=== PATIENT | female | born 1995 | race Caucasian/White ===

== ENCOUNTER 2018-05-17 23:04 | Emergency (ER) | payer MEDICAID, OTHER ==
[2018-05-17 23:11] VITALS: BP 118/66
--- NOTE | 2018-05-17 23:26 | EDPHY ---
H & P Time Seen by Provider: 05/17/18 23:16 HPI/ROS: Chief complaint: Bump on abdomen History of present illness: 22-year-old female presents to the emergency department for evaluation of a bump she has noticed on the right upper abdomen. She states she knows the bump day ago. She can't primarily see a when she is standing. There is no associated discomfort with including no abdominal pain, no chest pain, no nausea, vomiting or diarrhea, no fever. She denies precipitating factors including trauma. Smoking Status: Never smoked Physical Exam: General Appearance: Alert and no distress. Eyes: Pupils equal and round no injection. Respiratory: Chest is non tender, lungs are clear to auscultation. Cardiac: regular rate and rhythm Gastrointestinal: Abdomen is soft and non tender, no masses, bowel sounds normal. No hernias are appreciated. Musculoskeletal: Neck is supple and non tender. Extremities have full range of motion and are non tender. Skin: No rashes or lesions. Constitutional: Initial Vital Signs Temperature (C) 36.8 C 05/17/18 23:08 Heart Rate 89 05/17/18 23:08 Respiratory Rate 20 05/17/18 23:08 Blood Pressure 118/66 05/17/18 23:08 O2 Sat (%) 99 05/17/18 23:08 O2 Delivery Mode Room Air Allergies/Adverse Reactions: No Known Allergies Allergy (Verified 05/17/18 23:07) Home Medications: Medication Instructions Recorded NK [No Known Home Meds] 05/17/18 MDM/Departure - MDM ED Course/Re-evaluation: Patient seen under the supervision of my secondary supervising physician Dr. Joaquín Collier. Patient presents concerned she has a bump on her abdomen. She has an unremarkable physical exam of her abdomen and chest. When she shows me the bump she is showing me the right lower costal margin. When I press on her lower right anterior ribs this is where she feels the bump. There are no associated hernias, no abdominal tenderness under the ribs. She does appear to be pointing to the ribs. I discussed normal anatomy. Home care is discussed. She is provided referral to a primary care doctor. Return precautions are given. - Depart Disposition: Home, Routine, Self-Care Clinical Impression: Abdominal wall bulge Condition: Good Instructions: Normal Exam (ED) Additional Instructions: Follow up with a primary care doctor for continued evaluation and care If symptoms worsen or new symptoms develop return to the emergency room for recheck Referrals: NONE *PRIMARY CARE P,. [Primary Care Provider] - As per Instructions [facility],. [Clinic] - As per Instructions
== END 2018-05-17 23:32 | disposition home or self-care (01) ==
DX: R19.00 Intra-abdominal and pelvic swelling, mass and lump, unspecified site (principal)

== ENCOUNTER 2018-06-11 19:24 | Emergency (ER) | payer OTHER ==
--- NOTE | 2018-06-11 19:51 | EDPHY ---
General Time Seen by Provider: 06/11/18 19:43 Narrative: CHIEF COMPLAINT: I think I am having a miscarriage HISTORY OF PRESENT ILLNESS: Patient presents by private vehicle with her mother stepfather with reports of I think I am having a miscarriage. She reports vaginal bleeding and . Last menstrual April 29. She has been bleeding 2 days. She reports light bleeding at 1st. It is not heavier. She has used approximately 5 pads today. She has no chest pain, shortness of breath, lightheadedness or syncope. She has no previous pregnancies. She reports that this is an unwanted . She has lower abdominal pelvic pain and cramping but no upper abdominal pain. No worsening factors. No alleviating factors. No other associated complaints or modifying factors. REVIEW OF SYSTEMS: 10 systems were reviewed and negative with the exception of the elements mentioned in the history of present illness. PCP: None SPECIALISTS: None PAST MEDICAL HISTORY: Denies PAST SURGICAL HISTORY: Denies SOCIAL HISTORY: No tobacco or alcohol use. Works at a [employer]. Lives with her family. FAMILY HISTORY: Noncontributory EXAMINATION: Vitals: Triage VS reviewed General Appearance: Alert, no distress. Well appearing. Head: normocephalic, atraumatic Eyes: Pupils equal and round, no conjunctival pallor or injection ENT, Mouth: Mucous membranes moist Respiratory: Lungs are clear to auscultation Cardiovascular: Regular rate and rhythm no murmur Gastrointestinal: Abdomen is soft and nondistended. No tympany rigidity. No guarding. Bowel sounds present all 4 quadrants. There is mild suprapubic tenderness. No palpable mass. : Deferred by patient Back: non-tender, no bony abnormalities Neurological: A&O, nonfocal, normal gait Skin: Warm and dry, no rash Extremities: Nontender, no pedal edema Psychiatric: Mood and affect normal DIFFERENTIAL DIAGNOSES: Including but not limited to threatened miscarriage, incomplete miscarriage, inevitable miscarriage, vaginal bleeding , subchorionic hemorrhage MDM: 7:50 p.m. Vaginal bleeding with reported approximately 6 weeks gestation. with ongoing pelvic pain and cramping. I have ordered ultrasound to rule out ectopic. Vital signs are within normal limits. No evidence of significant hemorrhage. Laboratory studies will be obtained. She is in no acute distress. This is reportedly an unwanted , but we will need to blood ectopic. 8:10 p.m. Urine point of care is negative. Serum qualitative HCG is pending. 9:00 p.m. Notified by radiologist Dr. Rizo. We discussed the findings of the ultrasound as documented suggesting incomplete miscarriage. Ultrasound has ruled out ectopic . There are minimal products of conception suspected in the uterus. She is A positive and her vital signs are within normal limits. We discussed discharge home with follow-up with Ob physician until her HCG reaches 0 and her ultrasound is normal. We discussed that she must see the Ob physician for definitive outpatient care. We discussed ED precautions for any heavy bleeding greater than 1 pad per hour, fever, worsening pain. Patient is comfortable this plan. She is well-appearing and discharged home stable condition. SUPERVISION: This patient was independently evaluated without direct involvement of or examination by the attending physician. CONSULTATION: None. OB referral. - Diagnostics Imaging Results: Imaging Impressions Obstetrics Ultrasound 06/11/18 19:57 Impression: No evidence for an intrauterine . Recommend following beta hCG to exclude ectopic . No ultrasound findings to suggest ectopic . There is mild free fluid in the cul-de-sac. Mildly thickened endometrium at the lower uterine segment, without vascularity, which is nonspecific and could be hemorrhage or less likely retained products of conception. Results called and discussed with Roman Bee PA-C, on June 11, 2018 at 2102. - History Smoking Status: Never smoked - Objective Vital Signs: Initial Vital Signs Temperature (C) 99.1 F 06/11/18 19:36 Heart Rate 83 06/11/18 19:36 Respiratory Rate 20 06/11/18 19:36 Blood Pressure 146/74 H 06/11/18 19:36 O2 Sat (%) 96 06/11/18 19:36 O2 Delivery Mode Room Air Allergies/Adverse Reactions: No Known Allergies Allergy (Verified 06/11/18 19:35) Home Medications: Medication Instructions Recorded NK [No Known Home Meds] 05/17/18 Laboratory Results: Laboratory Results 06/11/18 19:56 06/11/18 19:56 06/11/18 06/11/18 06/11/18 19:59 19:59 19:56 WBC RBC Hgb Hct MCV MCH MCHC RDW Plt Count MPV Neut % (Auto) Lymph % (Auto) [place] % (Auto) Eos % (Auto) Baso % (Auto) Nucleat RBC Rel Count Absolute Neuts (auto) Absolute Lymphs (auto) Absolute Monos (auto) Absolute Eos (auto) Absolute Basos (auto) Absolute Nucleated RBC Immature Gran % Immature Gran # Sodium 136 mEq/L mEq/L (135-145) Potassium 3.7 mEq/L mEq/L (3.5-5.2) Chloride 107 mEq/L mEq/L (97-110) Carbon Dioxide 20 mEq/l L mEq/l (22-31) Anion Gap 9 mEq/L mEq/L (6-14) BUN 5 mg/dL L mg/dL (7-23) Creatinine 0.7 mg/dL mg/dL (0.6-1.0) Estimated GFR > 60 Glucose 88 mg/dL mg/dL (70-100) Calcium 9.1 mg/dL mg/dL (8.5-10.4) Beta HCG, Qual POSITIVE Beta HCG, Quant 43.83 mIU/mL H mIU/mL (0.00-4.83) Patient ABO/Rh A POSITIVE 06/11/18 19:56 WBC 9.87 10^3/uL H 10^3/uL (3.80-9.50) RBC 4.32 10^6/uL 10^6/uL (4.18-5.33) Hgb 14.3 g/dL g/dL (12.6-16.3) Hct 42.5 % % (38.0-47.0) MCV 98.4 fL fL (81.5-99.8) MCH 33.1 pg pg (27.9-34.1) MCHC 33.6 g/dL g/dL (32.4-36.7) RDW 12.1 % % (11.5-15.2) Plt Count 279 10^3/uL 10^3/uL (150-400) MPV 9.7 fL fL (8.7-11.7) Neut % (Auto) 71.6 % % (39.3-74.2) Lymph % (Auto) 17.5 % % (15.0-45.0) [place] % (Auto) 8.6 % % (4.5-13.0) Eos % (Auto) 1.6 % % (0.6-7.6) Baso % (Auto) 0.4 % % (0.3-1.7) Nucleat RBC Rel Count 0.0 % % (0.0-0.2) Absolute Neuts (auto) 7.06 10^3/uL H 10^3/uL (1.70-6.50) Absolute Lymphs (auto) 1.73 10^3/uL 10^3/uL (1.00-3.00) Absolute Monos (auto) 0.85 10^3/uL H 10^3/uL (0.30-0.80) Absolute Eos (auto) 0.16 10^3/uL 10^3/uL (0.03-0.40) Absolute Basos (auto) 0.04 10^3/uL 10^3/uL (0.02-0.10) Absolute Nucleated RBC 0.00 10^3/uL 10^3/uL (0-0.01) Immature Gran % 0.3 % % (0.0-1.1) Immature Gran # 0.03 10^3/uL 10^3/uL (0.00-0.10) Sodium Potassium Chloride Carbon Dioxide Anion Gap BUN Creatinine Estimated GFR Glucose Calcium Beta HCG, Qual Beta HCG, Quant Patient ABO/Rh Point of Care Test Results: Urine Collection Date 06/11/18 Collection Time 20:03 HCG Results Negative Departure - Departure Disposition: Home, Routine, Self-Care Clinical Impression: Incomplete miscarriage Condition: Good Instructions: Miscarriage (ED) Additional Instructions: 1. Contact Ob physician for definitive care. You need to be seen within 1 week. 2. Return here for any bleeding greater than 1 pad per hour, worsening pain, fever Referrals: Bria White DO [Doctor of Osteopathy] - As per Instructions Stand Alone Forms: Work Excuse
[2018-06-11 20:28] LABS: PLATELET COUNT 279 10^3/uL (150-400)
[2018-06-11 21:18] VITALS: BP 124/67
== END 2018-06-11 21:30 | disposition home or self-care (01) ==
DX: O03.4 Incomplete spontaneous abortion without complication (principal); Z3A.01 Less than 8 weeks gestation of pregnancy